=== PATIENT | male | born 1980 | race Caucasian/White ===

== ENCOUNTER 2023-08-29 09:57 | Outpatient (RCR) | payer MEDICAID, SELFPAY ==
--- NOTE | 2023-09-05 08:56 | ONC.NURNOTE ---
Dx: malignant neoplasm of the tongue base.
== END 2024-02-25 23:59 | disposition home or self-care (01) ==
LOC: CCIC 09:57
PROVIDERS: Visit Provider Radiology Radiation Oncology
DX: C01 Malignant neoplasm of base of tongue (principal)
CPT/HCPCS: 99211

== ENCOUNTER 2023-12-20 10:01 | Outpatient (CLI) | payer MEDICAID, SELFPAY ==
--- NOTE | 2023-12-20 10:15 | CRLHL7_ITS ---
For Patients: As a result of the Century Cures Act, medical imaging exams and procedure reports are released immediately into your electronic medical record. You may view this report before your referring provider. If you have questions, please contact your health care provider. INDICATION: Malignant neoplasm of tongue base TECHNIQUE: Modified barium swallow. Fluoroscopic time 1 minute 32 seconds. FINDINGS/IMPRESSION: Laryngeal penetration occurred without aspiration. No obstruction. Delayed initiation of the swallowing mechanism. Dictated by Erik Jimenez MD @ 12/20/2023 10:56:03 AM (Electronically Signed)
== END 2023-12-20 10:02 | disposition home or self-care (01) ==
LOC: RAD 10:02
PROVIDERS: Visit Provider Nurse Practitioner
DX: C01 Malignant neoplasm of base of tongue (principal)
CPT/HCPCS: 74230; 92611

== ENCOUNTER 2023-12-28 15:30 | Outpatient (RCR) | payer MEDICAID, SELFPAY | END 2024-04-26 23:59 | disposition home or self-care (01) | PROVIDERS: Visit Provider Nurse Practitioner | DX: C01 Malignant neoplasm of base of tongue (principal); I89.0 Lymphedema, not elsewhere classified; R13.10 Dysphagia, unspecified; Z51.89 Encounter for other specified aftercare | CPT/HCPCS: 92522; 92610; 97110; 97140; 97166; 97535; X5282 ==